=== PATIENT | male | born 1990 | race Caucasian/White ===

== ENCOUNTER 2022-07-12 10:21 | Day surgery (SDC) | payer BC ==
[2022-07-07 16:04] VITALS: BMI 23.7
[~2022-07-12 10:21] MED LIST: LACTATED RINGERS 1,000 ML IV SCH; LIDOCAINE 1% (10MG/ML) FOR IV START INTRADERMA PRN
[2022-07-12 10:43] VITALS: RESP 16; TEMP 96.7
[2022-07-12] MEDS ORDERED: LIDOCAINE 2% INJ 20 MG/ML (2 ML VIAL) ONE (11:12)
[2022-07-12] MEDS ORDERED: PROPOFOL 10 MG/ML 20 ML VIAL IV ONE (11:12)
--- NOTE | 2022-07-12 11:23 | P.PCN ---
Date of Procedure: 07/12/22 Procedure(s) Performed: BRIEF HISTORY: Patient is a 31-year-old, pleasant, white male scheduled for an upper endoscopy as a part of evaluation of long-standing history of GERD of 10 years duration. Lately symptoms are progressively getting worse. Has been on omeprazole in past with good relief of his symptoms. PROCEDURE PERFORMED: Esophagogastroduodenoscopy with biopsy. PREOPERATIVE DIAGNOSIS: Long-standing history of GERD. IV sedation per anesthesia. PROCEDURE: After informed consent was obtained, the patient was brought into the endoscopy unit. IV sedation was administered by Anesthesia under continuous monitoring. Initially the Olympus GIF-140 video endoscope was inserted into the mouth. Esophagus intubated without any difficulty. It was gradually advanced into the stomach and duodenum and carefully examined. The bulb and the second part of the duodenum appeared normal. The scope at this time was withdrawn to the stomach, adequately insufflated with air, and upon careful examination, mucosa of the antrum, body, cardia and the fundus appeared normal. The scope was then withdrawn into the esophagus. Small sliding-type well hernia noted. The GE junction was located at 39 cm from the incisors. It appeared regular with 2 small tongues of Looney's-appearing mucosa measuring 2-3 mm proximal to the GE junction which was biopsied. The esophagus appeared normal. There were no erosions or ulcerations seen and the patient tolerated the procedure well. IMPRESSION: 1. Irregular GE junctionnormal short segment Looney's esophagus status post biopsy. 2. Small hiatal hernia. RECOMMENDATIONS: The findings of this examination were discussed with the patient as well as his family. He was advised to follow with the biopsy results. Recommended that he start back on omeprazole 20 mg daily for long-term maintenance of GERD and follow antireflux measures.. The biopsies confirm the presence of Looney's esophagus he can have a repeat upper endoscopy in 3 years.
[2022-07-12 12:17] VITALS: BP 141/90; PULSE 81
== END 2022-07-12 12:17 | disposition home or self-care (01) ==
LOC: ORWHC2ENDO 10:21
PROVIDERS: ATTEND Internal Medicine Gastroenterology
DX: K21.00 Gastro-esophageal reflux disease with esophagitis, without bleeding (principal); K44.9 Diaphragmatic hernia without obstruction or gangrene; F17.290 Nicotine dependence, other tobacco product, uncomplicated
CPT/HCPCS: 88305; 43239; J2704; J2001